=== PATIENT | male | born 2000 | race African-American/Black ===

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

== ENCOUNTER 2019-04-29 17:59 | Emergency (ER) | payer OTHER ==
[2019-04-29] MEDS ORDERED: diphenhydrAMINE 25 MG CAP ONE (18:17)
[2019-04-29] MEDS ORDERED: Famotidine 20 MG TAB ONE (18:17)
[2019-04-29] MEDS ORDERED: Dexamethasone 10 MG/ML VIAL ONE (18:18)
== END 2019-04-29 19:37 | disposition home or self-care (01) ==
LOC: ERS 17:59
DX: T78.3XXA Angioneurotic edema, initial encounter (principal); J45.909 Unspecified asthma, uncomplicated
CPT/HCPCS: 99283; J1100; Q0163

== ENCOUNTER 2019-12-13 18:06 | Inpatient (IN) | payer BC, OTHER ==
[2019-12-13] MEDS ORDERED: Boostrix 0.5 ML VIAL ONE (18:25)
[2019-12-13] MEDS ORDERED: Fentanyl 100 MCG/2 ML VIAL ONE ×3 (18:25→20:19)
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
[2019-12-13] MEDS ORDERED: Tranexamic Acid 1,000 MG/10 ML VIAL ONE (18:32)
[2019-12-13 18:39] LABS: Hemoglobin 14.5 g/dL (14.0-18.0); Mean Corpuscular HGB CONC 32.7 g/dL (32.0-36.0); Mean Corpuscular Hemoglobin 27.1 pg (27.0-31.0); Mean Platelet Volume 6.6 fL (7.4-10.4); Platelet Count 369 thou/uL (130-400); RBC Distribution Width 11.9 % (11.5-14.5); Red Blood Cell (RBC) Count 5.36 mill/uL (4.70-6.10); White Blood Cell (WBC) Count 8.3 thou/uL (4.8-10.8)
[2019-12-13 18:44] LABS: PTT 28.1 sec (22.9-36.1); Prothrombin Time 13.1 sec (12.0-14.7)
[2019-12-13 18:52] LABS: Eosinophils 4 % (0-10); Lymphocytes 53 % (21-51); MDiff Complete? YES; Monocytes 5 % (0-10); Neutrophil 30 % (42-75); Platelet Morphology Comment Appears Adequate; RBC Morphology Normal; Reactive Lymphocytes 8 % (0-10)
[2019-12-13 19:00] LABS: ALT (SGPT) 14 U/L (8-55); AST (SGOT) 16 U/L (5-34); Albumin 4.4 g/dL (3.5-5.0); Alkaline Phosphatase 66 U/L (40-110); Anion Gap 15 mmol/L (10-20); BUN (Urea Nitrogen) 7 mg/dL (8.9-20.6); Bilirubin, Total 0.3 mg/dL (0.2-1.2); Calc. Creatinine Clearance 0 mL/min (70-130); Calcium 9.3 mg/dL (7.8-10.44); Carbon Dioxide 25 mmol/L (22-29); Chloride 102 mmol/L (98-107); Estimated GFR-MDRD Greater than 90; Globulin 3.3 g/dL (2.4-3.5); Glucose 115 mg/dL (70-105); Potassium 3.5 mmol/L (3.5-5.1); Protein, Total 7.7 g/dL (6.0-8.3); Sodium 138 mmol/L (136-145)
[2019-12-13] MEDS ORDERED: Gentamicin 500 MG in Sodium Chloride 0.9% 100 ML IVPB ONE (19:15)
[2019-12-13] MEDS ORDERED: Morphine 4 MG/ML VIAL ONE ×2 (19:27→23:45)
[2019-12-13 19:32] LABS: Acetaminophen Less than 6.0 mcg/mL (10.0-30.0); Alcohol Less than 10 mg/dL (Less than 10); Salicylate Less than 8.0 mg/dL (15.0-30.0)
[2019-12-13] MEDS ORDERED: Ondansetron PF 4 MG/2 ML Vial IVP PRN (22:31)
[2019-12-13] MEDS ORDERED: Dextrose 5% in Water 1,000 ML IV PRN (22:31)
[2019-12-13] MEDS ORDERED: Dextrose 50% Abboject 50 ML SYRINGE SLOW IVP PRN (22:31)
[2019-12-13] MEDS ORDERED: Cyclobenzaprine 10 MG TAB PO PRN (22:35)
[2019-12-13] MEDS ORDERED: Ondansetron PF 4 MG/2 ML Vial ONE (23:48)
[2019-12-13] MEDS ORDERED: Potassium Phosphate 30 MMOL in Sodium Chloride 0.9% 250 ML 250 ML IVPB SCH (23:59)
[2019-12-14] MEDS: Sodium Chloride 0.9% 1,000 ML IV SCH ×3 (00:52→15:18)
[2019-12-14] MEDS: Acetaminophen 500 MG TAB PO SCH ×5 (05:33→23:45)
[2019-12-14] MEDS: Clindamycin/D5W 600 MG in Premix Bag 1 BAG IVPB SCH ×3 (05:33→22:30)
[2019-12-14] MEDS: traMADol HCl 50 MG TAB PO SCH ×5 (05:33→23:45)
[2019-12-14 06:33] VITALS: BMI 26.0
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
[2019-12-14] MEDS ORDERED: CEFAZOLIN 2 GM in Premix Bag 1 BAG IVPB SCH (08:15)
[2019-12-14] MEDS ORDERED: Gentamicin Sulfate 80 MG in Premix Bag 1 BAG IVPB SCH (08:15)
[2019-12-14] MEDS: Senokot S 8.6-50 MG TAB PO SCH ×2 (08:37→22:20)
[2019-12-14] MEDS: Polyethylene Glycol 3350 17 GM Packet PO SCH (08:37)
[2019-12-14] MEDS: Famotidine 20 MG TAB PO SCH ×2 (08:39→22:20)
[2019-12-14] MEDS: Gabapentin 300 MG CAP PO SCH ×3 (08:39→22:20)
[2019-12-14] MEDS ORDERED: Famotidine 20 MG TAB PO SCH (09:00)
[2019-12-14 09:12] LABS: SARS-CoV-2 NAA Rapid Test Not Detected (NotDetected)
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
[2019-12-14] MEDS ORDERED: Midazolam HCl 2 mg/2 ml Vial ONE (16:31)
[2019-12-14] MEDS ORDERED: Sodium Chloride 0.9% 10 ML ONE (16:39)
[2019-12-14] MEDS ORDERED: Bacitracin Zinc Ointment 30 gm TUBE ONE ×2 (16:39→17:43)
[2019-12-14] MEDS ORDERED: Bupivacaine PF 0.5% 30 ML VIAL ONE ×2 (16:39→17:39)
[2019-12-14] MEDS ORDERED: Vancomycin 1 GM/200 ML BAG ONE (16:55)
[2019-12-14] MEDS ORDERED: Fentanyl 100 MCG/2 ML VIAL ONE (16:59)
[2019-12-14] MEDS ORDERED: PROPOFOL 200 MG/20 ML VIAL ONE (17:14)
[2019-12-14] MEDS ORDERED: diphenhydrAMINE 50 MG/ML VIAL ONE (17:14)
[2019-12-14] MEDS ORDERED: Dexamethasone 20 MG/5 ML VIAL ONE (17:14)
[2019-12-14] MEDS ORDERED: Ondansetron PF 4 MG/2 ML Vial ONE (17:14)
[2019-12-14] MEDS ORDERED: Sodium Chloride 0.9% 30 ML ONE (17:43)
[2019-12-14] MEDS ORDERED: Meperidine HCl/PF 25 MG/ML VIAL SLOW IVP PRN ×2 (20:05→20:36)
[2019-12-14] MEDS ORDERED: Ondansetron HCl/PF 4 MG/2 ML Vial IVP PRN ×2 (20:05→20:36)
[2019-12-14] MEDS ORDERED: Promethazine HCl 25 MG/ML VIAL SLOW IVP PRN (20:05)
[2019-12-14] MEDS ORDERED: Promethazine HCl 25 MG/ML VIAL IM PRN ×2 (20:05→20:36)
--- NOTE | 2019-12-14 20:28 | RAD ---
Exam:Intraoperative fluoroscopy HISTORY: ORIF left hand COMPARISON: None FINDINGS: 2 intraoperative. Views demonstrate internal fixation of the fifth metacarpal. IMPRESSION: Intraoperative views as above.
[2019-12-14] MEDS ORDERED: HYDROmorphone 2 MG/ML VIAL SLOW IVP PRN (20:36)
[2019-12-14] MEDS: Morphine 4 MG/ML VIAL SLOW IVP PRN (22:27)
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
--- NOTE | 2019-12-15 00:02 | PRG ---
DATE OF SERVICE: 12/14/2019 SUBJECTIVE: The patient was seen during evening rounds, just returning from the operating room. The patient is postop neuroplasty, digital nerves x2 and debridement, open reduction and internal fixation of fifth digit metacarpal fracture. The patient's pain is currently under control at this time. OBJECTIVE: The patient's vital signs are stable and he is afebrile. PLAN: Continue pain regimen and supportive care. Regular diet as tolerated. Antibiotics per Hand Surgery. Job ID: [id number]
[2019-12-15] MEDS: Morphine 4 MG/ML VIAL SLOW IVP PRN (01:57)
[2019-12-15] MEDS: Sodium Chloride 0.9% 1,000 ML IV SCH ×2 (01:59)
[2019-12-15 04:56] LABS: #Lymphocytes 0.8 thou/uL (1.20-3.40); #Monocytes 0.6 thou/uL (0.11-0.59); %Basophils 0.2 % (0.0-1.0); %Eosinophils 0.1 % (0.0-10.0); %Lymphocytes 9.2 % (21.0-51.0); %Monocytes 7.4 % (0.0-10.0); %Neutrophils 83.1 % (42.0-75.0); Hemoglobin 13.2 g/dL (14.0-18.0); Mean Corpuscular HGB CONC 33.3 g/dL (32.0-36.0); Mean Corpuscular Hemoglobin 27.6 pg (27.0-31.0); Mean Corpuscular Volume 82.9 fL (78.0-98.0); Mean Platelet Volume 6.4 fL (7.4-10.4); Platelet Count 308 thou/uL (130-400); RBC Distribution Width 11.7 % (11.5-14.5); Red Blood Cell (RBC) Count 4.78 mill/uL (4.70-6.10); White Blood Cell (WBC) Count 8.4 thou/uL (4.8-10.8)
[2019-12-15] MEDS ORDERED: Vancomycin 1 GM in Premix Bag 1 BAG IVPB SCH (05:00)
[2019-12-15 05:13] LABS: Anion Gap 11 mmol/L (10-20); BUN (Urea Nitrogen) 5 mg/dL (8.9-20.6); Calc. Creatinine Clearance 138 mL/min (70-130); Calcium 9.1 mg/dL (7.8-10.44); Carbon Dioxide 25 mmol/L (22-29); Chloride 104 mmol/L (98-107); Estimated GFR-MDRD Greater than 90; Glucose 145 mg/dL (70-105); Magnesium 1.6 mg/dL (1.6-2.6); Potassium 4.7 mmol/L (3.5-5.1); Sodium 135 mmol/L (136-145)
[2019-12-15] MEDS: traMADol HCl 50 MG TAB PO SCH ×2 (05:18→11:35)
[2019-12-15] MEDS: Acetaminophen 500 MG TAB PO SCH ×2 (05:19→11:36)
[2019-12-15] MEDS: Clindamycin/D5W 600 MG in Premix Bag 1 BAG IVPB SCH ×2 (06:27→14:00)
[2019-12-15] MEDS: Famotidine 20 MG TAB PO SCH (07:55)
[2019-12-15] MEDS: Senokot S 8.6-50 MG TAB PO SCH (07:56)
[2019-12-15] MEDS: Gabapentin 300 MG CAP PO SCH ×2 (07:56→17:15)
[2019-12-15] MEDS: Polyethylene Glycol 3350 17 GM Packet PO SCH (07:56)
[2019-12-15] MEDS ORDERED: Magnesium 2 GM/50 ML 2 GM in Premix Bag 1 BAG IVPB SCH (08:00)
[2019-12-15 15:15] VITALS: BP 139/79; TEMP 97.9
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
== END 2019-12-15 17:03 | disposition home or self-care (01) | DRG 514 ==
LOC: ERS 18:06 → 2SW 20:36 → OBSVTOIN 12-15 07:48
PROVIDERS: ADMIT Surgery; ATTEND Surgery
PROC: 0PSQ04Z Reposition Left Metacarpal with Internal Fixation Device, Open Approach (ICD-10-PCS; principal; 2019-12-14)
PROC: 0KBD0ZZ Excision of Left Hand Muscle, Open Approach (ICD-10-PCS; 2019-12-14)
PROC: 01U607Z Supplement Radial Nerve with Autologous Tissue Substitute, Open Approach (ICD-10-PCS; 2019-12-14)
PROC: 01U407Z Supplement Ulnar Nerve with Autologous Tissue Substitute, Open Approach (ICD-10-PCS; 2019-12-14)
DX: S62.327B Displaced fracture of shaft of fifth metacarpal bone, left hand, initial encounter for open fracture (principal); S64.497A Injury of digital nerve of left little finger, initial encounter; W34.00XA Accidental discharge from unspecified firearms or gun, initial encounter; Z88.0 Allergy status to penicillin; Z88.1 Allergy status to other antibiotic agents; J45.909 Unspecified asthma, uncomplicated; Z88.8 Allergy status to other drugs, medicaments and biological substances; Z20.828 Contact with and (suspected) exposure to other viral communicable diseases
CPT/HCPCS: 29125; 36415; 76000; 80048; 80053; 80307; 83735; 84100; 85025; 85610; 85730; 86850; 86900; 86901; 90471; 90715; 96365; 96366; 96367; 96375; 96376; C1713; G0378; G0390; J0690; J1100; J1200; J1580; J2250; J2270; J2405; J2704; J3010; J3370; J3475; J3490; J7050; S0020; U0002

== ENCOUNTER 2020-01-10 06:55 | Outpatient (CLI) | payer BC, OTHER ==
[2020-01-10 15:19] LABS: #Basophils 0.1 10x3/uL (0.0-0.2); #Eosinphils 0.6 10x3/uL (0.0-0.5); #Monocytes 0.4 10x3/uL (0.0-1.1); #Neutrophils 2.9 10x3/uL (1.5-8.4); %Basophils 1.8 % (0.0-2.0); %Eosinophils 8.9 % (0.0-6.0); %Lymphocytes 36.2 % (18.0-47.0); %Monocytes 6.9 % (0.0-10.0); Hemoglobin 13.8 g/dL (14.0-18.0); Mean Corpuscular HGB CONC 32.4 G/DL (32.0-36.0); Mean Corpuscular Volume 80.4 fl (80.0-100.0); Mean Platelet Volume 8.6 fl (7.4-10.4); Platelet Count 353 10x3/uL (130-400); RBC Distribution Width 12.8 % (11.5-14.5); White Blood Cell (WBC) Count 6.3 10x3/uL (4.5-11.0)
[2020-01-11 14:44] LABS: SARS-CoV-2 MS2 Positive; SARS-CoV-2 N Gene Negative; SARS-CoV-2 S Gene Negative; SARS-CoV-2 by NAA Not Detected (NotDetected); SARS-CoV-2 orf1ab Negative
== END 2020-01-10 06:56 | disposition home or self-care (01) ==
LOC: LABBT 06:55
PROVIDERS: ATTEND Orthopaedic Surgery Hand Surgery
DX: Z01.812 Encounter for preprocedural laboratory examination (principal); S62.327A Displaced fracture of shaft of fifth metacarpal bone, left hand, initial encounter for closed fracture; Z20.828 Contact with and (suspected) exposure to other viral communicable diseases
CPT/HCPCS: 85025; 87635; U0003

== ENCOUNTER 2020-01-15 12:03 | Day surgery (SDC) | payer BC ==
[2020-01-12 12:16] VITALS: BMI 28.5
[2020-01-15] MEDS ORDERED: Rocuronium Bromide 10 MG/ML (10ML VIAL) ONE (12:57)
[2020-01-15] MEDS ORDERED: PROPOFOL 200 MG/20 ML VIAL ONE (12:57)
[2020-01-15] MEDS ORDERED: Dexamethasone 20 MG/5 ML VIAL ONE (12:57)
[2020-01-15] MEDS ORDERED: Bacitracin Zinc Ointment 30 gm TUBE ONE (12:58)
[2020-01-15] MEDS ORDERED: Bupivacaine PF 0.5% 30 ML VIAL ONE (13:21)
[2020-01-15] MEDS ORDERED: Midazolam HCl 2 mg/2 ml Vial ONE (13:28)
[2020-01-15] MEDS ORDERED: Fentanyl 100 MCG/2 ML VIAL ONE (13:28)
[2020-01-15] MEDS ORDERED: Lidocaine 2% Jelly 5 ML TUBE ONE (13:37)
[2020-01-15] MEDS ORDERED: Clindamycin/D5W 600 mg/50 ml Premix Bag ONE (14:39)
--- NOTE | 2020-01-15 17:07 | RAD ---
LEFT HAND TWO VIEWS: History: ORIF left hand. Comparison: 12-14-2019 FINDINGS: There is some interval additional ORIF changes involving the fifth finger metacarpal. There appears t o be placement of at least one additional screw transversely through the proximal third of the metaca rpal shaft. IMPRESSION: Additional ORIF changes right fifth metacarpal. POS: [facility]
[2020-01-15] MEDS ORDERED: Ketorolac Tromethamine 30 MG/ML VIAL ONE (17:46)
[2020-01-15] MEDS ORDERED: HYDROcodone/Acetaminophen 5/325 mg Tablet ONE (19:06)
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
== END 2020-01-15 19:30 | disposition home or self-care (01) ==
LOC: SDC 12:03
PROVIDERS: ATTEND Orthopaedic Surgery Hand Surgery
PROC: 0PSV04Z Reposition Left Finger Phalanx with Internal Fixation Device, Open Approach (ICD-10-PCS; principal; 2020-01-15)
PROC: 0PSVXZZ Reposition Left Finger Phalanx, External Approach (ICD-10-PCS; principal; 2020-01-15)
DX: S62.301A Unspecified fracture of second metacarpal bone, left hand, initial encounter for closed fracture (principal); M20.022 Boutonniere deformity of left finger(s); Z88.0 Allergy status to penicillin; Z88.6 Allergy status to analgesic agent
CPT/HCPCS: 76000; C1713; J0690; J1100; J1885; J2250; J2704; J3010; J3490; S0020